=== PATIENT | male | born 2000 | race Caucasian/White ===

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

== ENCOUNTER 2023-10-09 13:21 | Emergency (ER) | payer BC, OTHER ==
[2023-10-09 13:37] VITALS: BP 122/87; PULSE 87; RESP 18; TEMP 98; O2SAT 97
--- NOTE | 2023-10-09 13:55 | ERPHSYRPT ---
- History of Present Illness Time Seen by Provider: 10/09/23 13:50 Source: patient Exam Limitations: no limitations Patient Subjective Stated Complaint: Left shoulder pain Triage Nursing Assessment: Patient ambulated back to ED and transferred self to bed. Patient A+O X3. Patient's skin pink, warm and dry. Patient complains of left shoulder pain after attempting to put a back pack like instrument bag when his left arm was up after he got one strap on left shoulder he heard a "pop". Patient complains of pain to left shoulder 5/10. Physician History: 22yo m presents w/ left shoulder pain that started 2hr prior to presenting to ED after he felt a pop while attempting to put on his backpack. Pt states he had some tingling in his fingers afterwards and has had continued dull pain. Pt states that this has happened before and he was placed in a sling and received PT. Pt states he is able to use the arm but it causes his pain to worsen. Pt denies any pain in his neck, elbow, or wrist, denies cp, soa, n/v. Allergies/Adverse Reactions: No Known Drug Allergies Allergy (Verified 10/09/23 13:27) Home Medications: No Reportable Medications [No Reported Medications] 10/09/23 [History] Hx Tetanus, Diphtheria Vaccination/Date Given: No (1 year) Hx Influenza Vaccination/Date Given: Yes Hx Pneumococcal Vaccination/Date Given: No Immunizations Up to Date: Yes Travel Risk - International Travel Have you traveled outside of the country in past 3 weeks: No - Coronavirus Screening Are you exhibiting any of the following symptoms?: No Close contact with a COVID-19 positive Pt in past 14-21 Days: No - Vaccine Status Have you recieved a Covid-19 vaccination: Yes Home Health Clinical Liaison: Unknown - Vaccination Dates Dates if Unknown: na - Past Medical History Pertinent Past Medical History: Yes Neurological History: Migraines ENT History: No Pertinent History Cardiac History: No Pertinent History Respiratory History: No Pertinent History Endocrine Medical History: No Pertinent History Musculoskeletal History: No Pertinent History GI Medical History: No Pertinent History History: No Pertinent History Psycho-Social History: No Pertinent History Male Reproductive Disorders: No Pertinent History - Past Surgical History Past Surgical History: No Neuro Surgical History: No Pertinent History Cardiac: No Pertinent History Respiratory: No Pertinent History Gastrointestinal: No Pertinent History Genitourinary: No Pertinent History Musculoskeletal: No Pertinent History Male Surgical History: No Pertinent History - Social History Smoking Status: Never smoker Exposure to second hand smoke: No Drug Use: none Patient Lives Alone: No - Nursing Vital Signs Nursing Vital Signs: Initial Vital Signs Temperature 98.0 F 10/09/23 13:28 Pulse Rate 87 10/09/23 13:28 Respiratory Rate 18 10/09/23 13:28 Blood Pressure 122/87 10/09/23 13:28 O2 Sat by Pulse Oximetry 97 10/09/23 13:28 Pain Scale Pain Intensity 5 - Physical Exam SpO2: 97 Ordered Tests: Active Orders 24 hr Category Date Time Status SHOULDER Stat Exams 10/09/23 13:54 Taken Medication Summary Discontinued Medications Generic Name Dose Route Start Last Admin Trade Name Freq PRN Reason Stop Dose Admin Ketorolac Tromethamine 30 mg 10/09/23 13:54 10/09/23 14:01 Ketorolac Tromethamine 30 Mg/Ml Inj IM 10/09/23 13:55 30 mg STAT ONE Administration Ketorolac Tromethamine Confirm 10/09/23 13:57 Ketorolac Tromethamine 30 Mg/Ml Inj Administered 10/09/23 13:58 Dose 30 mg .ROUTE .STK-MED ONE - Progress Progress: improved Progress Note: 10/09/23 15:45 pain improved w/ toradol xr shoulder negative for acute fracture plan for dc home ice/heat, tylenol for pain use left arm as tolerated, restrict lifting to 10lbs will forego sling at this time as pain is manageable instructed to go to bone and joint ortho walk in clinic tomorrow for further evaluation of likely ligamentous strain/sprain/tear returned to ED if pain significantly worsens, numbness progresses, become unable to move extremity Medical Desision Making - Diagnostic Testing Diagnostic test were ordered, analyzed, and reviewed by me: Yes Radiological Interpretation: Interpreted by me - Risk of complications Minimal Risk: Minimal risk of morbidity - Departure Departure Disposition: Home Clinical Impression: Left shoulder pain Qualifiers: Chronicity: acute Qualified Code(s): M25.512 - Pain in left shoulder Condition: Stable Critical Care Time: No Referrals: LINDA ROTH NP [Primary Care Provider] - Follow up/PCP as directed Additional Instructions: plan for dc home ice/heat, tylenol for pain use left arm as tolerated, restrict lifting to 10lbs will forego sling at this time as pain is manageable instructed to go to bone and joint ortho walk in clinic tomorrow for further evaluation of likely ligamentous strain/sprain/tear returned to ED if pain significantly worsens, numbness progresses, become unable to move extremity
[2023-10-09] MEDS ORDERED: TORAdol 30 mg Injection ONE (13:57)
[2023-10-09] MEDS: TORAdol 30 mg Injection IM ONE (14:01)
--- NOTE | 2023-10-09 19:15 | XRAY ---
Indication: Pain following lifting injury. Comparison: None 3 view left shoulder obtained. No bony, articular, or soft tissue abnormalities.
== END 2023-10-09 15:53 | disposition home or self-care (01) ==
LOC: ED 13:21
DX: M25.512 Pain in left shoulder (principal)
CPT/HCPCS: 73030; 96372; 99283; J1885